=== PATIENT | male | born 1955 | race Caucasian/White ===

== ENCOUNTER 2020-01-17 07:00 | Outpatient (RCR) | payer OTHER, SELFPAY ==
--- NOTE | 2020-02-27 14:44 | MHC.PT.DC ---
[facility] [place] Office [place] Office [place] Office [address] Ashly Flowers 140 [facility] [phone] F: [phone] F: [phone] F: [phone] F: [phone] Physical Therapy Discharge Report Diagnosis: Bilateral Leg Pain Date of Surgery: REFERRING DX: BILATERAL LEG PAIN Date of Evaluation: 12/27/19 Date of Discharge: 02/27/20 Treatments to Date: 6 Cancellations to Date: 0 No Shows to Date: 0 Discharge Status: Patient Elected to Stop Discharge Summary: Pt had to stop at this time for a stress test. Electronically signed by: Noah Mondragon PT Please sign and return to therapist. Thank you for your referral.
== END 2020-02-27 14:45 | disposition home or self-care (01) ==
LOC: HO.PTCHIC 07:00
PROVIDERS: PCP Internal Medicine; Visit Provider Internal Medicine
DX: M79.605 Pain in left leg (principal); M79.604 Pain in right leg
CPT/HCPCS: 97110; 97112

== ENCOUNTER 2020-01-24 11:02 | Outpatient (REF) | payer OTHER, SELFPAY ==
[2020-01-24 14:12] LABS: B Type Natriuretic Peptide 2392 pg/mL (<100)
[2020-01-24 14:15] LABS: Anion Gap 14 (12-20); Blood Urea Nitrogen 40 mg/dL (9-16); Calcium 8.2 mg/dL (8.4-10.2); Carbon Dioxide 24 mmol/L (22-29); Chloride 105 mmol/L (96-108); Estimated Glomerular Filt Rate 40; Glucose Random 104 mg/dL (60-115); Potassium 4.1 mmol/l (3.3-5.1); Sodium 139 mmol/L (135-145)
== END 2020-01-24 11:03 | disposition home or self-care (01) ==
LOC: HO.LAB 11:02
PROVIDERS: PCP Internal Medicine; Referring Provider Internal Medicine; Visit Provider Nurse Practitioner Family
DX: I25.10 Atherosclerotic heart disease of native coronary artery without angina pectoris (principal); I42.9 Cardiomyopathy, unspecified; R06.02 Shortness of breath; Z95.810 Presence of automatic (implantable) cardiac defibrillator; I48.0 Paroxysmal atrial fibrillation; G47.33 Obstructive sleep apnea (adult) (pediatric); I11.0 Hypertensive heart disease with heart failure; I50.20 Unspecified systolic (congestive) heart failure
CPT/HCPCS: 80048; 83880; 93005

== ENCOUNTER → 2020-02-09 08:23 | Outpatient (REF) | payer OTHER, SELFPAY ==
--- NOTE | 2020-02-09 | NM_ITS ---
Myocardial perfusion study Indication: Chest discomfort with shortness of breath with underlying cardiomyopathy to evaluate for myocardial ischemia Technique: The patient was brought in for a Lexiscan perfusion study on 02/09/2020. Patient performed low-level exercise and was injected 0.4 mg of Lexiscan intravenously. Within a minute of injection, 28 mCi of sestamibi was given intravenously. Images were obtained using the SPECT gamma camera interlaced with the gating device. Images were obtained in supine position. Resting perfusion study was performed on 02/10/2020. Patient was administered 28 mCi of sestamibi intravenously at rest. Images were then obtained in supine position. Images obtained with and without CT attenuation. Total DLP 128 MGY-CM. Images were processed with the software and compared side to side in short axis, horizontal long axis and vertical long axis views. Findings: The stress perfusion study showed non attenuated images show diffuse thinning and reduced uptake in all segments except for the septum. There is absent uptake in the apex and severely reduced uptake in the inferior wall of the LV myocardium. There is also mildly to moderately reduced uptake in the inferolateral wall of the LV myocardium. Attenuation corrected images show improved uptake in the inferior wall with persistent severely reduced uptake in the distal anterior and absent uptake apex of the LV myocardium with moderately reduced uptake in the inferolateral wall of the LV myocardium.. The gated study shows severely reduced LV systolic function with calculated LVEF of 14%. LV cavity is severely dilated in size. The gated study shows diffusely reduced wall thickening and contraction of all segments. Resting study shows attenuated corrected images mildly improved uptake in the apex as well as improved uptake in the inferolateral wall of the LV myocardium.. Gating at rest reveals diffuse wall hypokinesis with ejection fraction at 60%. The findings are consistent with there is large area of apical absent uptake with some reversal with rest perfusion studies suggestive of either mixed infarction and ischemia versus severe ischemia of the apex as well as the mild ischemia inferolateral wall.. NM/NM herminia perf SPECT rest & str Impression: 1. Myocardial perfusion imaging study shows large apical infarct with ischemia as well as ischemia of the inferolateral wall 2. Gated LVEF is 14% 3. Transient ischemic dilatation not present but LV cavity is severely dilated EKG is nondiagnostic for ischemia
--- NOTE | 2020-02-09 08:31 | CA_ITS ---
Transthoracic Echocardiogram Patient (Last, First, Middle): Oh Fermin F Gender: Male Date of : 1955 Age: 64 Procedure Date: 02/09/2020 Procedure Type: Transthoracic Echocardiogram Location: OP Height: 170.18 cm Weight: 108.86 kg BSA: 2.18 m2 Heart Rate: bpm BP: 120 / 82 mmHg Roadway Designer: CJ Escobar MD: Ifrah Magallanes NP-Ivory Motor Driver: Jose Dumont MD Symptoms: I25.10 - Atherosclerotic heart disease of [place] coronary artery without angina pectoris Study Quality: Fair ECG Rhythm: AV paced rhythm Conclusions: - 1. Severely dilated left ventricle with severe LV systolic dysfunction with LVEF of 10-15% with restrictive filling pattern 2. Severely dilated left atrium 3. Piqz-hd-[id number] mitral regurgitation 4. Normal RV systolic pressure 5. No pericardial effusion Findings Procedure Information Contrast agent, definity, is being given per protocol without apparent complications. Left Ventricle Severely increased left ventricular cavity size. There is mildly increased left ventricular wall thickness. The left ventricular systolic function is severely decreased. The visually estimated ejection fraction is between 10 15%. Spectral Doppler is indicative of a restrictive filling pattern. E/E prime ratio is >15, consistent with elevated filling pressures. Right Ventricle Normal right ventricular cavity size. There is normal right ventricular systolic function. There is an ICD wire seen in the right ventricle. Atria The left atrium is severely dilated. Interatrial shunt cannot be excluded. The right atrium is mildly dilated. A pacemaker wire is identified in the right atrium. Aortic Valve The aortic valve structure and function is likely normal. There is no aortic valve stenosis. There is mild aortic valve regurgitation. Mitral Valve There is moderate anterior and posterior mitral leaflet thickening. The anterior mitral leaflet has restricted mobility and the posterior mitral leaflet has restricted mobility. There is mild to moderate mitral valve regurgitation. There is no mitral valve stenosis. Pulmonic Valve The pulmonic valve is likely normal. There is trace pulmonic valve regurgitation. Tricuspid Valve Normal tricuspid valve structure. There is mild tricuspid valve regurgitation. The right ventricular systolic pressure is normal. Normal right atrial pressure. There is no evidence of pulmonary hypertension. Great Vessels All visible segments of the aorta are normal in size. Venous The inferior vena cava is normal in size and collapses greater than 50% with inspiration. Pericardium/Pleural There is no evidence of pericardial effusion. Prior Study Comparison No significant change compared to prior study dated: 11/30/2018. Measurements 2D Linear Measurements RVIDd: 3.66 RVIDd Index: 1.68 IVSd: 1.30 0.6-0.9/0.6-1.0 cm LVIDd: 7.27 3.9-5.3/4.2-5.9 cm LVIDd Index: 3.33 2.4-3.2/2.2-3.1 cm/m2 LVIDs: 5.91 2.0-3.6 cm LVPWd: 1.41 0.7-1.1 cm Ao Root: 2.80 2.1-3.5 cm LA Diam: 7.20 2.7-3.8/3.0-4.0 cm LAIDs Index: 3.30 1.5-2.3 cm/m2 LV Mass: 634.16 67-162/88-224 g LV Mass Index: 290.90 43-95/49-115 g/m2 LVOT Diam: 2.50 3.0+(-)1.3 cm 2D Systolic Function EF 4C: 23.50 >55% EF 2C: 33.50 >55% Mitral Valve MR Vol - PW Dopp: 32.40 MR VTI: 1.62 MR ERO: 20.00 MR Alias Ramin: 0.30 MR RAD: 0.70 Aortic Valve AoV Pk Ramin: 1.33 AoV Mn Ramin: 0.95 AoV VTI: 0.23 AoV Pk Grad: 7.00 Aov Mn Grad: 4.00 LIVIA Cont.VTI: 1.59 LVOT LVOT Pk Ramin: 0.48 LVOT Mn Ramin: 0.31 LVOT VTI: 0.07 LVOT Pk Grad: 1.00 LVOT Mn Grad: 0.00 LVOT Diam: 2.50 LVOT Area: 4.91 Tricuspid Valve TR Pk Ramin: 2.76 TR Pk Grad: 30.00 RA Press: 8.00 RVSP: 38.00 Great Vessels Aorta Ao Root-2D: 2.80 2.0-3.7 cm Ao Asc: 3.20 2.1-3.4 cm Ao Arch: 2.60 Updated in Other Vendor System with Status of Final Jose Dumont MD electronically signed on 02/10/2020 3:02:17 PM with status of Final
--- NOTE | 2020-02-09 08:31 | CA_ITS ---
Acquisition Time: 2020-02-09 09:35:55 Total Exercise Time: 00:02:00 Test Indications: Dyspnea Medications: AMIODORONE PRADAXA FUROSEMIDE METOPROLOL TRAMADOL COLCHICINE ALPRAZOLAM ALLOPURINOL Protocol: LEXISCAN Max HR: 065 BPM 41% of Pred: 157 BPM Max BP: 126/084 mmHG Max Work Load: 1.0 METS Pharmacological stress test with Lexiscan injection, while sitting and not kicking, without anginal symptom, with isolated PVC, with normotensive response to injection, with nondiagnostic EKG for ischemia. Nuclear images pending. Test reviewed with Dr Dumont. Referred By: Ifrah Magallanes Overread By: IFRAH MAGALLANES
== END ==
LOC: HO.CARD 08:23
PROVIDERS: PCP Internal Medicine; Visit Provider Nurse Practitioner Family
DX: I25.10 Atherosclerotic heart disease of native coronary artery without angina pectoris (principal); R06.02 Shortness of breath; I42.9 Cardiomyopathy, unspecified
CPT/HCPCS: 78452; 93017; 93306; A9500; J0280; J2785; Q9957

== ENCOUNTER 2020-02-15 10:01 | Outpatient (REF) | payer OTHER, SELFPAY ==
[2020-02-15 13:26] LABS: Anion Gap 16 (12-20); Blood Urea Nitrogen 27 mg/dL (9-16); Calcium 8.7 mg/dL (8.4-10.2); Carbon Dioxide 26 mmol/L (22-29); Chloride 104 mmol/L (96-108); Estimated Glomerular Filt Rate 43; Glucose Random 78 mg/dL (60-115); Potassium 4.5 mmol/l (3.3-5.1); Sodium 141 mmol/L (135-145)
[2020-02-15 13:33] LABS: Hematocrit 54.3 % (42-52); Hemoglobin 17.4 g/dl (14.0-18.0); INTERNATIONAL NORM RATIO 1.3 (0.9-1.1); Mean Corpuscular Hemoglobin 29.5 pg (27.0-33.0); Mean Corpuscular Volume 92.2 fL (80-98); Mean Platelet Volume 12.9 fL (9.4-12.4); Platelet Count 200 X10*3/uL (160-400); Prothrombin Time 15.4 SEC (10.8-13.0); Red Blood Count 5.89 X10*6/uL (4.60-5.80); Red Cell Distribution Width 16.3 % (11.0-16.0); White Blood Count 6.8 X10*3/uL (4.8-10.8)
== END 2020-02-15 10:02 | disposition home or self-care (01) ==
LOC: HO.LAB 10:01
PROVIDERS: PCP Internal Medicine; Referring Provider Internal Medicine; Visit Provider Internal Medicine Cardiovascular Disease
DX: I25.10 Atherosclerotic heart disease of native coronary artery without angina pectoris (principal); I48.0 Paroxysmal atrial fibrillation; R07.89 Other chest pain; R94.39 Abnormal result of other cardiovascular function study; I42.9 Cardiomyopathy, unspecified; I50.20 Unspecified systolic (congestive) heart failure; Z95.810 Presence of automatic (implantable) cardiac defibrillator
CPT/HCPCS: 36415; 80048; 85027; 85610

== ENCOUNTER → 2020-03-07 10:23 | Outpatient (BNVA) | payer OTHER, SELFPAY | PROVIDERS: PCP Internal Medicine; Visit Provider Internal Medicine Cardiovascular Disease | DX: Z76.89 Persons encountering health services in other specified circumstances (principal) ==

== ENCOUNTER 2020-03-24 09:11 | Outpatient (REF) | payer OTHER, SELFPAY ==
[2020-03-24 10:03] LABS: B Type Natriuretic Peptide 815 pg/mL (<100)
[2020-03-24 10:08] LABS: Anion Gap 13 (12-20); Blood Urea Nitrogen 25 mg/dL (9-16); Calcium 8.8 mg/dL (8.4-10.2); Carbon Dioxide 30 mmol/L (22-29); Chloride 106 mmol/L (96-108); Estimated Glomerular Filt Rate 43; Glucose Random 94 mg/dL (60-115); Potassium 4.1 mmol/l (3.3-5.1); Sodium 145 mmol/L (135-145)
== END 2020-03-24 09:12 | disposition home or self-care (01) ==
LOC: HO.LAB 09:11
PROVIDERS: PCP Internal Medicine; Visit Provider Internal Medicine Cardiovascular Disease
DX: I50.20 Unspecified systolic (congestive) heart failure (principal); I42.9 Cardiomyopathy, unspecified
CPT/HCPCS: 80048; 83880

== ENCOUNTER → 2020-03-27 10:59 | Outpatient (BNVA) | payer OTHER, SELFPAY | PROVIDERS: PCP Internal Medicine; Visit Provider Internal Medicine Cardiovascular Disease | DX: I50.20 Unspecified systolic (congestive) heart failure (principal); I48.0 Paroxysmal atrial fibrillation; Z79.01 Long term (current) use of anticoagulants; Z79.899 Other long term (current) drug therapy; Z45.02 Encounter for adjustment and management of automatic implantable cardiac defibrillator | CPT/HCPCS: 93005 ==

== ENCOUNTER 2020-05-09 06:28 | Outpatient (REF) | payer OTHER, SELFPAY ==
[2020-05-09 07:42] LABS: Anion Gap 16 (12-20); Blood Urea Nitrogen 31 mg/dL (9-16); Calcium 8.7 mg/dL (8.4-10.2); Carbon Dioxide 29 mmol/L (22-29); Chloride 102 mmol/L (96-108); Estimated Glomerular Filt Rate 34; Glucose Random 108 mg/dL (60-115); Potassium 4.5 mmol/L (3.3-5.1); Sodium 142 mmol/L (135-145)
[2020-05-09 07:52] LABS: B Type Natriuretic Peptide 2249 pg/mL (<100)
== END 2020-05-09 06:29 | disposition home or self-care (01) ==
LOC: HO.LAB 06:28
PROVIDERS: PCP Internal Medicine; Visit Provider Internal Medicine Cardiovascular Disease
DX: I50.20 Unspecified systolic (congestive) heart failure (principal)
CPT/HCPCS: 36415; 80048; 83880

== ENCOUNTER 2020-05-10 12:25 | Outpatient (REF) | payer OTHER, SELFPAY ==
--- NOTE | ~2020-05-10 | XR_ITS ---
EXAMINATION: XR CHEST CLINICAL INFORMATION: I50.20 - Unspecified systolic (congestive) heart failure COMPARISON: Chest radiographs 09/07/2018, 09/03/2018 TECHNIQUE: 2 views of the chest were obtained. FINDINGS: There is multilead AICD and generalized cardiomegaly similar to prior studies. The vascularity is normal. The lungs are clear. There is no airspace consolidation, vascular congestion, or effusion. The hilar and mediastinal contours and bony structures are stable. XR/XR chest 2V IMPRESSION: No acute intrathoracic disease when compared with prior studies.
== END 2020-05-10 12:26 | disposition home or self-care (01) ==
LOC: HO.XRAY 12:25
PROVIDERS: PCP Internal Medicine; Visit Provider Internal Medicine Cardiovascular Disease
DX: I50.20 Unspecified systolic (congestive) heart failure (principal); I48.0 Paroxysmal atrial fibrillation; I42.9 Cardiomyopathy, unspecified; I25.10 Atherosclerotic heart disease of native coronary artery without angina pectoris; I25.118 Atherosclerotic heart disease of native coronary artery with other forms of angina pectoris; G47.33 Obstructive sleep apnea (adult) (pediatric); Z45.02 Encounter for adjustment and management of automatic implantable cardiac defibrillator; Z79.899 Other long term (current) drug therapy
CPT/HCPCS: 71046; 93005

== ENCOUNTER 2020-05-16 06:21 | Outpatient (REF) | payer OTHER, SELFPAY ==
[2020-05-16 07:31] LABS: B Type Natriuretic Peptide 818 pg/mL (<100)
[2020-05-16 08:18] LABS: Anion Gap 14 (12-20); Blood Urea Nitrogen 31 mg/dL (9-16); Calcium 8.7 mg/dL (8.4-10.2); Carbon Dioxide 31 mmol/L (22-29); Chloride 100 mmol/L (96-108); Estimated Glomerular Filt Rate 33; Glucose Random 90 mg/dL (60-115); Potassium 3.5 mmol/L (3.3-5.1); Sodium 141 mmol/L (135-145)
== END 2020-05-16 06:22 | disposition home or self-care (01) ==
LOC: HO.LAB 06:21
PROVIDERS: Visit Provider Internal Medicine Cardiovascular Disease
DX: I50.20 Unspecified systolic (congestive) heart failure (principal)
CPT/HCPCS: 36415; 80048; 83880

== ENCOUNTER → 2020-05-28 14:39 | Outpatient (BNVA) | payer OTHER, SELFPAY | PROVIDERS: PCP Internal Medicine; Visit Provider Internal Medicine Cardiovascular Disease ==

== ENCOUNTER 2020-07-19 06:05 | Outpatient (REF) | payer OTHER, SELFPAY ==
[2020-07-19 07:20] LABS: MANUAL DIFF FLAG NO
[2020-07-19 07:30] LABS: Basophils Percent Auto 0.3 % (0-2); Eosinophils Absolute Auto 0.4 X10*3/uL (0.0-0.4); Eosinophils Percent Auto 4.4 % (0-4); Hematocrit 54.6 % (42-52); Hemoglobin 17.4 g/dl (14.0-18.0); Imm Gran Abs Auto 0.02 X10*3/uL (0.00-0.03); Imm Gran Pct Auto 0.2 % (0.0-0.4); Lymphocytes Absolute Auto 2.1 X10*3/uL (1.2-4.9); Lymphocytes Percent Auto 24.2 % (20-40); Mean Corpuscular HGB Conc 31.9 g/dl (31.0-36.0); Mean Corpuscular Hemoglobin 29.1 pg (27.0-33.0); Mean Corpuscular Volume 91.5 fL (80-98); Monocytes Absolute Auto 0.8 X10*3/uL (0.1-1.2); Monocytes Percent Auto 9.5 % (2-11); Neutrophils Absolute Auto 5.3 X10*3/uL (2.0-8.3); Neutrophils Percent Auto 61.4 % (45-73); Platelet Count 197 X10*3/uL (160-400); Red Blood Count 5.97 X10*6/uL (4.60-5.80); Red Cell Distribution Width 15.4 % (11.0-16.0); White Blood Count 8.7 X10*3/uL (4.8-10.8)
[2020-07-19 07:41] LABS: Alanine Aminotransferase 17 U/L (0-40); Albumin Level 4.3 g/dL (3.5-5.0); Alkaline Phosphatase 111 U/L (39-117); Anion Gap 15 (12-20); Aspartate Amino Transferase 25 U/L (5-37); Bilirubin Total 0.9 mg/dL (0.0-1.0); Blood Urea Nitrogen 46 mg/dL (9-16); Calcium 9.4 mg/dL (8.4-10.2); Carbon Dioxide 34 mmol/L (22-29); Chloride 97 mmol/L (96-108); Cholesterol 122 mg/dL; Estimated Glomerular Filt Rate 30; Glucose Random 92 mg/dL (60-115); HDL Cholesterol 36 mg/dL; LDL Cholesterol Calculated 65 mg/dl; Phosphorus 5.2 mg/dL (2.7-4.5); Potassium 4.1 mmol/L (3.3-5.1); Sodium 142 mmol/L (135-145); Total Protein 7.3 g/dL (6.5-8.0); Triglycerides 106 mg/dL
[2020-07-19 07:53] LABS: B Type Natriuretic Peptide 457 pg/mL (<100)
[2020-07-19 08:05] LABS: Free T4 (Free Thyroxine) 1.16 ng/dL (0.71-1.85); Prostate Specific Antigen Scr 2.26 ng/mL (<0.05-4.0); Thyroid Stimulating Hormone 2.91 uIU/mL (0.32-4.0)
[2020-07-19 09:38] LABS: Estimated Average Glucose 100 mg/dL; Hemoglobin A1c % 5.1 %
== END 2020-07-19 06:06 | disposition home or self-care (01) ==
LOC: HO.LAB 06:05
PROVIDERS: Visit Provider Internal Medicine
DX: E78.00 Pure hypercholesterolemia, unspecified (principal); I50.20 Unspecified systolic (congestive) heart failure
CPT/HCPCS: 36415; 80053; 80061; 83036; 83735; 83880; 84100; 84153; 84439; 84443; 85025

== ENCOUNTER → 2020-07-31 12:30 | Outpatient (BNVA) | payer OTHER, SELFPAY | PROVIDERS: PCP Internal Medicine; Referring Provider Internal Medicine; Visit Provider Internal Medicine Cardiovascular Disease ==

== ENCOUNTER → 2020-10-11 09:26 | Outpatient (BNVA) | payer OTHER, SELFPAY | PROVIDERS: PCP Internal Medicine; Visit Provider Internal Medicine Cardiovascular Disease | DX: Z45.02 Encounter for adjustment and management of automatic implantable cardiac defibrillator (principal); I50.20 Unspecified systolic (congestive) heart failure; I48.0 Paroxysmal atrial fibrillation; I25.118 Atherosclerotic heart disease of native coronary artery with other forms of angina pectoris | CPT/HCPCS: 93005 ==

== ENCOUNTER 2020-10-20 07:14 | Outpatient (REF) | payer OTHER, SELFPAY ==
[2020-10-20 08:10] LABS: Anion Gap 12 (12-20); Blood Urea Nitrogen 18 mg/dL (9-16); Calcium 9.1 mg/dL (8.4-10.2); Carbon Dioxide 32 mmol/L (22-29); Chloride 102 mmol/L (96-108); Estimated Glomerular Filt Rate 41; Glucose Random 91 mg/dL (60-115); Potassium 3.8 mmol/L (3.3-5.1); Sodium 142 mmol/L (135-145)
[2020-10-20 08:17] LABS: B Type Natriuretic Peptide 584 pg/mL (<100)
== END 2020-10-20 07:15 | disposition home or self-care (01) ==
LOC: HO.LAB 07:14
PROVIDERS: PCP Internal Medicine; Visit Provider Internal Medicine Cardiovascular Disease
DX: I50.20 Unspecified systolic (congestive) heart failure (principal)
CPT/HCPCS: 36415; 80048; 83880

== ENCOUNTER 2021-01-15 10:35 | Outpatient (REF) | payer OTHER, SELFPAY ==
[2021-01-15 13:01] LABS: Anion Gap 13 (12-20); Blood Urea Nitrogen 33 mg/dL (9-16); Calcium 9.2 mg/dL (8.4-10.2); Carbon Dioxide 29 mmol/L (22-29); Chloride 105 mmol/L (96-108); Estimated Glomerular Filt Rate 47; Glucose Random 84 mg/dL (60-115); Potassium 3.9 mmol/L (3.3-5.1); Sodium 143 mmol/L (135-145)
[2021-01-15 13:06] LABS: B Type Natriuretic Peptide 719 pg/mL (<100)
== END 2021-01-15 10:36 | disposition home or self-care (01) ==
LOC: HO.LAB 10:35
PROVIDERS: PCP Internal Medicine; Referring Provider Internal Medicine; Visit Provider Internal Medicine Cardiovascular Disease
DX: I50.20 Unspecified systolic (congestive) heart failure (principal); I48.0 Paroxysmal atrial fibrillation; I25.118 Atherosclerotic heart disease of native coronary artery with other forms of angina pectoris; Z95.810 Presence of automatic (implantable) cardiac defibrillator
CPT/HCPCS: 36415; 80048; 83880; 93005

== ENCOUNTER 2021-01-31 06:18 | Outpatient (REF) | payer OTHER, SELFPAY ==
[2021-01-31 06:26] LABS: MANUAL DIFF FLAG NO
[2021-01-31 07:20] LABS: Basophils Percent Auto 0.4 % (0-2); Eosinophils Absolute Auto 0.3 X10*3/uL (0.0-0.4); Eosinophils Percent Auto 3.9 % (0-4); Hematocrit 50.1 % (42.0-52.0); Imm Gran Abs Auto 0.03 X10*3/uL (0.00-0.03); Imm Gran Pct Auto 0.4 % (0.0-0.4); Lymphocytes Absolute Auto 1.7 X10*3/uL (1.2-4.9); Lymphocytes Percent Auto 22.1 % (20-40); Mean Corpuscular HGB Conc 31.9 g/dl (31.0-36.0); Mean Corpuscular Hemoglobin 28.5 pg (27.0-33.0); Mean Corpuscular Volume 89.1 fL (80.0-98.0); Mean Platelet Volume 11.5 fL (9.4-12.4); Monocytes Absolute Auto 0.7 X10*3/uL (0.1-1.2); Monocytes Percent Auto 8.8 % (2-11); Neutrophils Absolute Auto 5.08 x10*3/uL (2.0-8.3); Neutrophils Percent Auto 64.4 % (45-73); Platelet Count 201 X10*3/uL (160-400); Red Blood Count 5.62 X10*6/uL (4.60-5.80); Red Cell Distribution Width 15.5 % (11.0-16.0); White Blood Count 7.9 X10*3/uL (4.8-10.8)
[2021-01-31 07:48] LABS: Alanine Aminotransferase 13 U/L (0-40); Albumin Level 4.2 g/dL (3.5-5.0); Alkaline Phosphatase 101 U/L (39-117); Anion Gap 15 (12-20); Aspartate Amino Transferase 24 U/L (5-37); Bilirubin Total 0.4 mg/dL (0.0-1.0); Blood Urea Nitrogen 49 mg/dL (9-16); Carbon Dioxide 27 mmol/L (22-29); Chloride 105 mmol/L (96-108); Cholesterol 120 mg/dL; Estimated Glomerular Filt Rate 31; Glucose Random 97 mg/dL (60-115); HDL Cholesterol 33 mg/dL; LDL Cholesterol Calculated 56 mg/dl; Potassium 4.8 mmol/L (3.3-5.1); Sodium 142 mmol/L (135-145); Total Protein 7.4 g/dL (6.5-8.0); Triglycerides 157 mg/dL; Uric Acid 6.1 mg/dL (3.4-7.0)
[2021-01-31 07:56] LABS: B Type Natriuretic Peptide 254 pg/mL (<100)
[2021-01-31 08:11] LABS: Free T4 (Free Thyroxine) 1.08 ng/dL (0.71-1.85); Prostate Specific Antigen Scr 2.96 ng/mL (<0.05-4.0); Thyroid Stimulating Hormone 2.79 uIU/mL (0.32-4.0)
[2021-01-31 08:41] LABS: Folate 16.1 ng/mL (> or = 4.0); Vitamin B12 457 pg/mL (200-900)
== END 2021-01-31 06:19 | disposition home or self-care (01) ==
LOC: HO.LAB 06:18
PROVIDERS: PCP Internal Medicine; Visit Provider Internal Medicine
DX: Z12.5 Encounter for screening for malignant neoplasm of prostate (principal); I25.118 Atherosclerotic heart disease of native coronary artery with other forms of angina pectoris; I48.0 Paroxysmal atrial fibrillation; E78.00 Pure hypercholesterolemia, unspecified
CPT/HCPCS: 36415; 80053; 80061; 82607; 82746; 83880; 84153; 84439; 84443; 84550; 85025

== ENCOUNTER → 2021-02-25 09:17 | Outpatient (REF) | payer OTHER, SELFPAY ==
--- NOTE | 2021-02-25 09:48 | CA_ITS ---
Transthoracic Echocardiogram Patient (Last, First, Middle): Oh Fermin F Gender: Male Date of : 1955 Age: 65 Procedure Date: 02/25/2021 Procedure Type: Transthoracic Echocardiogram Location: OP Height: 170.18 cm Weight: 105.24 kg BSA: 2.15 m2 Heart Rate: bpm BP: 122 / 78 mmHg Sports Information Director: Referring MD: Jose Dumont MD Symptoms: I50.20 - Unspecified systolic (congestive) heart failure Study Quality: Fair ECG Rhythm: Sinus with extra beats Conclusions: - The left ventricular systolic function is severely decreased. The visually estimated ejection fraction is between 10-15%. - No obvious valvular pathology seen on this study. Findings Procedure Information Contrast agent, definity, is being given per protocol without apparent complications. Left Ventricle Mildly increased left ventricular cavity size. There is moderately increased left ventricular wall thickness. The left ventricular systolic function is severely decreased. The visually estimated ejection fraction is between 10 15%. There is severe global hypokinesis. E/E prime ratio is between 8 and 15 consistent with indeterminate filling pressures. Evidence suggests grade I (mild) diastolic dysfunction. Right Ventricle Normal right ventricular cavity size and systolic function. There is an ICD wire seen in the right ventricle. TAPSE 2.9cm. Atria The left atrium is mildly dilated. The right atrium is normal in size. Aortic Valve The aortic valve was not well visualized. The aortic valve structure and function is likely normal. There is no aortic valve stenosis. The mean gradient is 4 mmHg. There is trace (trivial) aortic valve regurgitation. Mitral Valve The mitral valve appears normal. There is trace mitral valve regurgitation. There is no mitral valve stenosis. Pulmonic Valve The pulmonic valve was not well visualized. Tricuspid Valve There is mild tricuspid valve regurgitation. The pulmonary artery systolic pressure is normal. Great Vessels The aortic annulus, sinuses of valsalva, and asc aorta are normal in size. Venous The inferior vena cava was not well visualized. The inferior vena cava is normal in size. Pericardium/Pleural There is no evidence of pericardial effusion. Prior Study Comparison No significant change compared to prior study dated: 02/09/2020. Recommendations, Care & Conclusions No obvious valvular pathology seen on this study. Measurements 2D Linear Measurements IVSd: 1.39 0.6-0.9/0.6-1.0 cm LVIDd: 6.54 3.9-5.3/4.2-5.9 cm LVIDd Index: 3.04 2.4-3.2/2.2-3.1 cm/m2 LVIDs: 5.50 2.0-3.6 cm LVPWd: 1.38 0.7-1.1 cm Ao Root: 3.10 2.1-3.5 cm LA Diam: 5.80 2.7-3.8/3.0-4.0 cm LAIDs Index: 2.70 1.5-2.3 cm/m2 LV Mass: 548.32 67-162/88-224 g LV Mass Index: 255.03 43-95/49-115 g/m2 LVOT Diam: 2.50 3.0+(-)1.3 cm 2D Systolic Function EF 4C: 19.30 >55% EF 2C: 26.60 >55% EF BiP: 24.60 >55% Mitral Valve MV Pk E: 0.41 MV PK A: 0.47 MV Decel Time: 245.00 E/A: 0.90 E'Lateral: 2.61 E'Medial: 3.26 E/E' Med: 12.60 E/E' Lat: 15.70 PHT: 72.00 MVA PHT: 3.06 Decel [place]: 1.68 Aortic Valve AoV Pk Ramin: 1.35 AoV Mn Ramin: 0.87 AoV VTI: 0.26 AoV Pk Grad: 7.00 Aov Mn Grad: 4.00 LIVIA Cont.VTI: 2.12 LVOT LVOT Pk Ramin: 0.58 LVOT Mn Ramin: 0.38 LVOT VTI: 0.11 LVOT Pk Grad: 1.00 LVOT Mn Grad: 1.00 LVOT Diam: 2.50 LVOT Area: 4.91 Diastolic Function MV Pk E: 0.41 MV Pk A: 0.47 E/A: 0.90 E'Medial: 3.26 E/E' Med: 12.60 E' Laterial: 2.61 E/E' Lat: 15.70 Right Ventricle TAPSE (mm): 29.00 Tricuspid Valve TR Pk Ramin: 2.25 TR Pk Grad: 20.00 Great Vessels Aorta Ao Root-2D: 3.10 2.0-3.7 cm Ao Asc: 3.40 2.1-3.4 cm Pulmonary Valve PV Pk Ramin: 0.87 Peak PV Grad: 3.00 Updated in Other Vendor System with Status of Final Enio Go MD electronically signed on 02/26/2021 12:10:26 PM with status of Final
== END ==
LOC: HO.CARD 09:17
PROVIDERS: Visit Provider Internal Medicine Cardiovascular Disease
DX: I50.20 Unspecified systolic (congestive) heart failure (principal)
CPT/HCPCS: 93306; Q9957

== ENCOUNTER 2021-03-26 07:00 | Outpatient (RCR) | payer OTHER, SELFPAY ==
--- NOTE | 2021-02-01 07:54 | MHC.PT.EP ---
[facility] [place] Office [place] Office [place] Office [address] Ashly Flowers [address] [phone] F: [phone] F: [phone] F: [phone] F: [phone] Physical Therapy Plan of Care Date of Evaluation: Date of Surgery: n/a Diagnosis: Gait instability Assessment: Patient is a 65 year old R handed male who presents with s/s consistent with gait instability. 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 Current impairments include pain, balance, ROM, flexibility, strength, safety, independence, activity tolerance and functional mobility. Functional limitations include decreased ability to walk, stand, transfer, negotiate stairs, and perform weight bearing activities.. Patient is motivated with good rehab potential. Skilled PT will address impairments and functional limitations in order to achieve goals. Frequency and Duration: The patient will be seen 2x/week for 6 weeks Short Term Goals: I with HEP - 2 weeks SLB > 20 seconds - 3 weeks up and down 6 stair with 1 handheld assist and good eccentric control - 3 weeks Detention Goals: up and down 8 stair with 1 handheld assist and good eccentric control - 6 weeks LEFS 58/80 - 6 weeks LE strength 4/5 grossly - 6 weeks Full left knee flexion, 90/90 lacking < 20 - 6 weeks Treatment Plan: Modalities to reduce pain, spasms and effusion. Manual therapy to restore motion and function. Therapeutic exercise to improve strength and flexibility. Neuromuscular re-education for posture and balance. Therapeutic activities to return to functional activities of daily living. Electronically signed by: Noah Mondragon, PT Please sign and return to therapist. Thank you for your referral.
--- NOTE | 2021-07-17 07:36 | MHC.PT.DC ---
[facility] [place] Office [place] Office [place] Office [address] Ashly Flowers [address] [phone] F: [phone] F: [phone] F: [phone] F: [phone] Physical Therapy Discharge Report Diagnosis: Gait instability Date of Surgery: n/a Date of Evaluation: 02/01/21 Date of Discharge: 04/18/21 Treatments to Date: 11 Cancellations to Date: 0 No Shows to Date: 0 Discharge Status: Improved Function Independent with HEP Discharge Summary: At this time, pt elected to stop PT and continue exclusively with HEP after experiencing good progress on goals during his time in PT. 03/26/21: pt is progressing well overall with stairs, balance, function. still uses a cane at work as a precaution. gait is steadier and he is tolerating increased resistance. 03/19/21: pt has been progressing very well overall. improved stair mechanics. improved strength. 03/14/21: pt progressing very well. able to walk longer, less fatigue. improved performance on stairs. continue to progress as tolerated. 03/07/21: added TRX squats. follows cues well for mechanics. continue to progress as tolerated. 03/05/21: pt still progressing well noting stairs are easier at home. increased resistance on shuttle for double and single leg. no adverse reactions. 02/28/21: pt progressing well with skilled PT for balance and hip strength. no pain reported. we progressed resistance on stepper with no adverse reactions. 02/26/21: Responding very well with skilled PT to build strength, balance and stability. Functional improvements include stair negotiation into/out of cellar at home. 02/19/21: pt progressed with shuttle resistance, lunges and stepper time. no adverse reactions. requires continued cues to cut down UE assist with stairs. 02/14/21: pt challenged with above program but overall no adverse reactions. still relies on UE for step up/down activity control. With cues to reduce UE use, pt able to but to small extent. 02/07: Pt demonstrated good flat ground balance in // bars; NV trial rocker or airex to increase challenge; Demonstrated significant reluctance and compensated performance with descending stairs; See gait. Added bridge, sit <> stand with hip hinge and quad stretch to HEP. Patient is a 65 year old R handed male who presents with s/s consistent with gait instability. 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 Current impairments include pain, balance, ROM, flexibility, strength, safety, independence, activity tolerance and functional mobility. Functional limitations include decreased ability to walk, stand, transfer, negotiate stairs, and perform weight bearing activities.. Patient is motivated with good rehab potential. Skilled PT will address impairments and functional limitations in order to achieve goals. Electronically signed by: Noah Mondragon, PT Please sign and return to therapist. Thank you for your referral.
== END 2021-07-17 07:37 | disposition home or self-care (01) ==
LOC: HO.PTCHIC 07:00
PROVIDERS: PCP Internal Medicine; Visit Provider Internal Medicine
DX: R26.81 Unsteadiness on feet (principal)
CPT/HCPCS: 97110; 97112; 97116; 97163; 97530

== ENCOUNTER 2021-05-09 06:11 | Outpatient (REF) | payer OTHER, SELFPAY ==
[2021-05-09 06:32] LABS: MANUAL DIFF FLAG NO
[2021-05-09 07:32] LABS: Basophils Percent Auto 0.2 % (0-2); Eosinophils Absolute Auto 0.2 X10*3/uL (0.0-0.4); Eosinophils Percent Auto 3.4 % (0-4); Hematocrit 45.4 % (42.0-52.0); Hemoglobin 14.4 g/dl (14.0-18.0); Imm Gran Abs Auto 0.03 X10*3/uL (0.00-0.03); Imm Gran Pct Auto 0.5 % (0.0-0.4); Lymphocytes Absolute Auto 1.7 X10*3/uL (1.2-4.9); Mean Corpuscular HGB Conc 31.7 g/dl (31.0-36.0); Mean Corpuscular Hemoglobin 27.1 pg (27.0-33.0); Mean Corpuscular Volume 85.5 fL (80.0-98.0); Mean Platelet Volume 11.3 fL (9.4-12.4); Monocytes Absolute Auto 0.8 X10*3/uL (0.1-1.2); Monocytes Percent Auto 11.5 % (2-11); Neutrophils Absolute Auto 3.8 x10*3/uL (2.0-8.3); Neutrophils Percent Auto 58.4 % (45-73); Platelet Count 222 X10*3/uL (160-400); Red Blood Count 5.31 X10*6/uL (4.60-5.80); Red Cell Distribution Width 15.1 % (11.0-16.0); White Blood Count 6.5 X10*3/uL (4.8-10.8)
[2021-05-09 07:45] LABS: Appearance Urine CLEAR; Color Urine YELLOW; Glucose Urine UA NEG (NEG); Leukocyte Esterase Urine TRACE (NEG); Nitrite Urine NEG (NEG); Urine Blood NEG (NEG); Urine Ketones NEG (NEG); Urine Protein NEG (NEG-TRACE)
[2021-05-09 08:00] LABS: Alanine Aminotransferase 18 U/L (0-40); Albumin Level 4.2 g/dL (3.5-5.0); Alkaline Phosphatase 94 U/L (39-117); Anion Gap 14 (12-20); Aspartate Amino Transferase 30 U/L (5-37); Bilirubin Direct 0.3 mg/dL (0.0-0.5); Bilirubin Total 0.5 mg/dL (0.0-1.0); Blood Urea Nitrogen 67 mg/dL (9-16); Carbon Dioxide 28 mmol/L (22-29); Chloride 97 mmol/L (96-108); Estimated Glomerular Filt Rate 25; Glucose Random 93 mg/dL (60-115); Magnesium 2.9 mg/dL (1.6-2.6); Potassium 4.8 mmol/L (3.3-5.1); Sodium 134 mmol/L (135-145); Total Protein 7.7 g/dL (6.5-8.0)
[2021-05-09 08:03] LABS: B Type Natriuretic Peptide 121 pg/mL (<100)
[2021-05-09 08:16] LABS: Free T4 (Free Thyroxine) 1.01 ng/dL (0.71-1.85); Thyroid Stimulating Hormone 4.17 uIU/mL (0.32-4.0)
[2021-05-09 08:34] LABS: Bacteria Urine 2+ /LPF; Mucus Urine 1+ /LPF; RBC Urine 0 /HPF (0); Renal Epithelial Cells Urine TRACE /LPF; Squamous Epithelial Cell Urine TRACE /LPF
[2021-05-09 09:26] LABS: Folate 18.3 ng/mL (> or = 4.0); Vitamin B12 999 pg/mL (200-900)
[2021-05-09 09:42] LABS: Prostate Specific Antigen Scr 1.96 ng/mL (<0.05-4.0)
== END 2021-05-09 06:12 | disposition home or self-care (01) ==
LOC: HO.LAB 06:11
PROVIDERS: PCP Internal Medicine; Visit Provider Internal Medicine
DX: Z12.5 Encounter for screening for malignant neoplasm of prostate (principal); I50.20 Unspecified systolic (congestive) heart failure; E78.00 Pure hypercholesterolemia, unspecified; R79.89 Other specified abnormal findings of blood chemistry
CPT/HCPCS: 36415; 80053; 81001; 82248; 82607; 82746; 83735; 83880; 84153; 84439; 84443; 85025

== ENCOUNTER → 2021-06-11 14:17 | Outpatient (BNVA) | payer OTHER, SELFPAY | PROVIDERS: PCP Internal Medicine; Referring Provider Internal Medicine; Visit Provider Internal Medicine Cardiovascular Disease | DX: Z45.02 Encounter for adjustment and management of automatic implantable cardiac defibrillator (principal); I50.20 Unspecified systolic (congestive) heart failure; I25.118 Atherosclerotic heart disease of native coronary artery with other forms of angina pectoris; I48.0 Paroxysmal atrial fibrillation; N18.9 Chronic kidney disease, unspecified | CPT/HCPCS: 93005 ==

== ENCOUNTER 2021-06-26 05:58 | Outpatient (REF) | payer OTHER, SELFPAY ==
[2021-06-26 06:18] LABS: MANUAL DIFF FLAG NO
[2021-06-26 07:34] LABS: Basophils Percent Auto 0.3 % (0-2); Eosinophils Absolute Auto 0.2 X10*3/uL (0.0-0.4); Eosinophils Percent Auto 2.9 % (0-4); Hematocrit 45.5 % (42.0-52.0); Hemoglobin 14.4 g/dl (14.0-18.0); Imm Gran Abs Auto 0.03 X10*3/uL (0.00-0.03); Imm Gran Pct Auto 0.4 % (0.0-0.4); Lymphocytes Absolute Auto 1.6 X10*3/uL (1.2-4.9); Lymphocytes Percent Auto 23.3 % (20-40); Mean Corpuscular HGB Conc 31.6 g/dl (31.0-36.0); Mean Corpuscular Hemoglobin 26.9 pg (27.0-33.0); Mean Corpuscular Volume 84.9 fL (80.0-98.0); Monocytes Percent Auto 13.7 % (2-11); Neutrophils Absolute Auto 4.2 x10*3/uL (2.0-8.3); Neutrophils Percent Auto 59.4 % (45-73); Platelet Count 227 X10*3/uL (160-400); Red Blood Count 5.36 X10*6/uL (4.60-5.80); Red Cell Distribution Width 17.7 % (11.0-16.0)
[2021-06-26 07:44] LABS: INTERNATIONAL NORM RATIO 1.5 (0.9-1.1); Prothrombin Time 17.1 SEC (9.9-13.0)
[2021-06-26 08:02] LABS: B Type Natriuretic Peptide 90 pg/mL (<100)
[2021-06-26 08:03] LABS: Alanine Aminotransferase 16 U/L (0-40); Albumin Level 4.2 g/dL (3.5-5.0); Alkaline Phosphatase 86 U/L (39-117); Anion Gap 14 (12-20); Aspartate Amino Transferase 27 U/L (5-37); Bilirubin Total 0.4 mg/dL (0.0-1.0); Blood Urea Nitrogen 68 mg/dL (9-16); Calcium 9.2 mg/dL (8.4-10.2); Carbon Dioxide 25 mmol/L (22-29); Chloride 100 mmol/L (96-108); Estimated Glomerular Filt Rate 25; Glucose Random 99 mg/dL (60-115); Iron 39 mcg/dL (45-160); Percent Iron Saturation 10 % (15-50); Potassium 4.7 mmol/L (3.3-5.1); Sodium 134 mmol/L (135-145); Total Iron Binding Capacity 408 mcg/dL (228-428); Total Protein 7.6 g/dL (6.5-8.0); Unsaturated Iron Binding 369 ug/dL
[2021-06-26 08:26] LABS: Thyroid Stimulating Hormone 2.99 uIU/mL (0.32-4.0)
[2021-06-26 08:32] LABS: Folate 19.1 ng/mL (> or = 4.0); Vitamin B12 880 pg/mL (200-900)
[2021-06-26 09:17] LABS: Appearance Urine CLEAR; Color Urine STRAW; Glucose Urine UA 250 MG/DL (NEG); Leukocyte Esterase Urine 2+ (NEG); Nitrite Urine NEG (NEG); Urine Blood NEG (NEG); Urine Ketones NEG (NEG); Urine Protein NEG (NEG-TRACE)
[2021-06-26 09:25] LABS: Bacteria Urine 4+ /LPF; RBC Urine 0 /HPF (0)
== END 2021-06-26 05:59 | disposition home or self-care (01) ==
LOC: HO.LAB 05:58
PROVIDERS: PCP Internal Medicine; Visit Provider Internal Medicine Cardiovascular Disease
DX: N18.9 Chronic kidney disease, unspecified (principal); I50.20 Unspecified systolic (congestive) heart failure
CPT/HCPCS: 36415; 80053; 81001; 82607; 82746; 83540; 83880; 84439; 84443; 85025; 85610

== ENCOUNTER 2021-10-18 06:20 | Outpatient (REF) | payer OTHER, SELFPAY ==
[2021-10-18 08:21] LABS: Anion Gap 16 (12-20); Blood Urea Nitrogen 52 mg/dL (9-16); Calcium 9.3 mg/dL (8.4-10.2); Carbon Dioxide 25 mmol/L (22-29); Chloride 103 mmol/L (96-108); Cholesterol 104 mg/dL; Estimated Glomerular Filt Rate 29; Glucose Random 106 mg/dL (60-115); HDL Cholesterol 34 mg/dL; LDL Cholesterol Calculated 47 mg/dl; Potassium 5.4 mmol/L (3.3-5.1); Sodium 139 mmol/L (135-145); Triglycerides 117 mg/dL
[2021-10-18 08:26] LABS: B Type Natriuretic Peptide 84 pg/mL (<100)
== END 2021-10-18 06:21 | disposition home or self-care (01) ==
LOC: HO.LAB 06:20
PROVIDERS: Absent Provider Internal Medicine; PCP Internal Medicine; Visit Provider Internal Medicine Cardiovascular Disease
DX: I50.20 Unspecified systolic (congestive) heart failure (principal); I48.0 Paroxysmal atrial fibrillation; E78.00 Pure hypercholesterolemia, unspecified
CPT/HCPCS: 36415; 80048; 80061; 83880

== ENCOUNTER → 2021-10-21 08:24 | Outpatient (BNVA) | payer OTHER, SELFPAY | PROVIDERS: PCP Internal Medicine; Referring Provider Internal Medicine; Visit Provider Internal Medicine Cardiovascular Disease | DX: Z45.02 Encounter for adjustment and management of automatic implantable cardiac defibrillator (principal); I50.20 Unspecified systolic (congestive) heart failure; I48.0 Paroxysmal atrial fibrillation; I25.118 Atherosclerotic heart disease of native coronary artery with other forms of angina pectoris | CPT/HCPCS: 93005 ==

== ENCOUNTER 2021-10-28 06:05 | Outpatient (REF) | payer OTHER, SELFPAY ==
[2021-10-28 07:30] LABS: Hematocrit 45.9 % (42.0-52.0); Hemoglobin 14.4 g/dl (14.0-18.0); Mean Corpuscular HGB Conc 31.4 g/dl (31.0-36.0); Mean Corpuscular Hemoglobin 27.8 pg (27.0-33.0); Mean Corpuscular Volume 88.6 fL (80.0-98.0); Mean Platelet Volume 10.7 fL (9.4-12.4); Platelet Count 207 X10*3/uL (160-400); Red Blood Count 5.18 X10*6/uL (4.60-5.80); Red Cell Distribution Width 16.3 % (11.0-16.0); White Blood Count 7.7 X10*3/uL (4.8-10.8)
[2021-10-28 07:35] LABS: INTERNATIONAL NORM RATIO 1.3 (0.9-1.1); Prothrombin Time 15.5 SEC (10.0-13.1)
[2021-10-28 07:53] LABS: Anion Gap 15 (12-20); Blood Urea Nitrogen 29 mg/dL (9-16); Calcium 9.2 mg/dL (8.4-10.2); Carbon Dioxide 25 mmol/L (22-29); Chloride 105 mmol/L (96-108); Estimated Glomerular Filt Rate 38; Glucose Random 90 mg/dL (60-115); Potassium 5.4 mmol/L (3.3-5.1); Sodium 140 mmol/L (135-145)
== END 2021-10-28 06:06 | disposition home or self-care (01) ==
LOC: HO.LAB 06:05
PROVIDERS: PCP Internal Medicine; Visit Provider Internal Medicine Cardiovascular Disease
DX: I25.118 Atherosclerotic heart disease of native coronary artery with other forms of angina pectoris (principal); I48.0 Paroxysmal atrial fibrillation; I50.20 Unspecified systolic (congestive) heart failure; N18.9 Chronic kidney disease, unspecified
CPT/HCPCS: 36415; 80048; 85027; 85610

== ENCOUNTER 2022-02-28 12:13 | Outpatient (REF) | payer OTHER, SELFPAY ==
[2022-02-28 14:47] LABS: B Type Natriuretic Peptide 272 pg/mL (<100)
[2022-02-28 14:50] LABS: Blood Urea Nitrogen 72 mg/dL (9-16); Calcium 9.2 mg/dL (8.4-10.2); Estimated Glomerular Filt Rate 18; Glucose Random 101 mg/dL (60-115)
[2022-02-28 16:35] LABS: Anion Gap 16 (12-20); Carbon Dioxide 22 mmol/L (22-29); Chloride 96 mmol/L (96-108); Potassium 6.1 mmol/L (3.3-5.1); Sodium 128 mmol/L (135-145)
== END 2022-02-28 12:14 | disposition home or self-care (01) ==
LOC: HO.LAB 12:13
PROVIDERS: Anesthesiology Pain Medicine; PCP Internal Medicine; Visit Provider Internal Medicine Cardiovascular Disease
DX: I25.5 Ischemic cardiomyopathy (principal)
CPT/HCPCS: 36415; 80048; 83880

== ENCOUNTER 2022-04-03 05:38 | Outpatient (REF) | payer OTHER, SELFPAY ==
[2022-04-03 05:46] LABS: MANUAL DIFF FLAG NO
[2022-04-03 06:24] LABS: Basophils Percent Auto 0.3 % (0-2); Hematocrit 26.1 % (42.0-52.0); Imm Gran Abs Auto 0.06 X10*3/uL (0.00-0.03); Imm Gran Pct Auto 0.5 % (0.0-0.4); Lymphocytes Absolute Auto 1.1 X10*3/uL (1.2-4.9); Lymphocytes Percent Auto 9.7 % (20-40); Mean Corpuscular HGB Conc 30.7 g/dl (31.0-36.0); Mean Corpuscular Volume 78.4 fL (80.0-98.0); Mean Platelet Volume 10.5 fL (9.4-12.4); Monocytes Percent Auto 8.7 % (2-11); Neutrophils Absolute Auto 8.9 x10*3/uL (2.0-8.3); Neutrophils Percent Auto 80.8 % (45-73); Platelet Count 155 X10*3/uL (160-400); Red Blood Count 3.33 X10*6/uL (4.60-5.80); Red Cell Distribution Width 20.5 % (11.0-16.0)
[2022-04-03 07:26] LABS: Alanine Aminotransferase 8 U/L (0-40); Albumin Level 2.5 g/dL (3.5-5.0); Alkaline Phosphatase 99 U/L (39-117); Anion Gap 19 (12-20); Aspartate Amino Transferase 271 U/L (5-37); Bilirubin Total 0.5 mg/dL (0.0-1.0); Blood Urea Nitrogen 50 mg/dL (9-16); Calcium 7.9 mg/dL (8.4-10.2); Carbon Dioxide 23 mmol/L (22-29); Chloride 96 mmol/L (96-108); Estimated Glomerular Filt Rate 15; Glucose Random 93 mg/dL (60-115); Potassium 4.5 mmol/L (3.3-5.1); Sodium 133 mmol/L (135-145); Total Protein 6.2 g/dL (6.5-8.0)
== END 2022-04-03 05:39 | disposition home or self-care (01) ==
LOC: HO.MMNH2L 05:38
PROVIDERS: Visit Provider Family Medicine
DX: A41.9 Sepsis, unspecified organism (principal)
CPT/HCPCS: 36415; 80053; 85025

== ENCOUNTER 2022-04-07 05:58 | Outpatient (REF) | payer OTHER, SELFPAY ==
[2022-04-07 05:52] LABS: MANUAL DIFF FLAG NO
[2022-04-07 06:16] LABS: Basophils Percent Auto 0.4 % (0-2); Eosinophils Absolute Auto 0.1 X10*3/uL (0.0-0.4); Hematocrit 22.7 % (42.0-52.0); Imm Gran Abs Auto 0.03 X10*3/uL (0.00-0.03); Imm Gran Pct Auto 0.4 % (0.0-0.4); Lymphocytes Absolute Auto 1.2 X10*3/uL (1.2-4.9); Lymphocytes Percent Auto 15.3 % (20-40); Mean Corpuscular HGB Conc 30.4 g/dl (31.0-36.0); Mean Corpuscular Hemoglobin 23.8 pg (27.0-33.0); Mean Corpuscular Volume 78.3 fL (80.0-98.0); Mean Platelet Volume 10.1 fL (9.4-12.4); Monocytes Absolute Auto 0.6 X10*3/uL (0.1-1.2); Monocytes Percent Auto 7.4 % (2-11); Neutrophils Percent Auto 75.5 % (45-73); Platelet Count 263 X10*3/uL (160-400); Red Cell Distribution Width 19.8 % (11.0-16.0)
[2022-04-07 06:46] LABS: Hemoglobin 6.9 g/dl (14.0-18.0)
[2022-04-07 06:48] LABS: Anion Gap 18 (12-20); Blood Urea Nitrogen 67 mg/dL (9-16); Calcium 7.6 mg/dL (8.4-10.2); Carbon Dioxide 24 mmol/L (22-29); Chloride 94 mmol/L (96-108); Estimated Glomerular Filt Rate 10; Glucose Random 77 mg/dL (60-115); Potassium 5.2 mmol/L (3.3-5.1); Sodium 131 mmol/L (135-145)
== END 2022-04-07 05:59 | disposition home or self-care (01) ==
LOC: HO.MMNH2L 05:58
PROVIDERS: Visit Provider Family Medicine
DX: Z86.2 Personal history of diseases of the blood and blood-forming organs and certain disorders involving the immune mechanism (principal)
CPT/HCPCS: 36415; 80048; 85025

== ENCOUNTER 2022-04-14 06:38 | Outpatient (REF) | payer OTHER, SELFPAY ==
[2022-04-14 06:23] LABS: MANUAL DIFF FLAG NO
[2022-04-14 07:03] LABS: Basophils Percent Auto 0.4 % (0-2); Eosinophils Absolute Auto 0.2 X10*3/uL (0.0-0.4); Eosinophils Percent Auto 2.1 % (0-4); Hemoglobin 7.5 g/dl (14.0-18.0); Imm Gran Abs Auto 0.09 X10*3/uL (0.00-0.03); Imm Gran Pct Auto 1.2 % (0.0-0.4); Lymphocytes Absolute Auto 1.3 X10*3/uL (1.2-4.9); Lymphocytes Percent Auto 17.6 % (20-40); Mean Corpuscular Hemoglobin 24.1 pg (27.0-33.0); Mean Corpuscular Volume 80.4 fL (80.0-98.0); Monocytes Absolute Auto 0.8 X10*3/uL (0.1-1.2); Monocytes Percent Auto 11.3 % (2-11); Neutrophils Percent Auto 67.4 % (45-73); Platelet Count 336 X10*3/uL (160-400); Red Blood Count 3.11 X10*6/uL (4.60-5.80); Red Cell Distribution Width 20.1 % (11.0-16.0); White Blood Count 7.5 X10*3/uL (4.8-10.8)
[2022-04-14 07:56] LABS: Anion Gap 15 (12-20); Blood Urea Nitrogen 42 mg/dL (9-16); Calcium 8.1 mg/dL (8.4-10.2); Carbon Dioxide 27 mmol/L (22-29); Chloride 95 mmol/L (96-108); Estimated Glomerular Filt Rate 12; Glucose Random 79 mg/dL (60-115); Potassium 4.9 mmol/L (3.3-5.1); Sodium 132 mmol/L (135-145)
== END 2022-04-14 06:39 | disposition home or self-care (01) ==
LOC: HO.MMNH2L 06:38
PROVIDERS: Visit Provider Family Medicine
DX: A41.9 Sepsis, unspecified organism (principal)
CPT/HCPCS: 36415; 80048; 85025

== ENCOUNTER 2022-04-21 06:43 | Outpatient (REF) | payer OTHER, SELFPAY ==
[2022-04-21 06:27] LABS: MANUAL DIFF FLAG NO
[2022-04-21 07:15] LABS: Basophils Percent Auto 0.5 % (0-2); Eosinophils Absolute Auto 0.1 X10*3/uL (0.0-0.4); Eosinophils Percent Auto 0.8 % (0-4); Hematocrit 25.1 % (42.0-52.0); Hemoglobin 7.5 g/dl (14.0-18.0); Imm Gran Abs Auto 0.06 X10*3/uL (0.00-0.03); Imm Gran Pct Auto 0.8 % (0.0-0.4); Lymphocytes Absolute Auto 1.5 X10*3/uL (1.2-4.9); Lymphocytes Percent Auto 20.1 % (20-40); Mean Corpuscular HGB Conc 29.9 g/dl (31.0-36.0); Mean Corpuscular Hemoglobin 23.9 pg (27.0-33.0); Mean Corpuscular Volume 79.9 fL (80.0-98.0); Mean Platelet Volume 10.7 fL (9.4-12.4); Monocytes Absolute Auto 0.8 X10*3/uL (0.1-1.2); Monocytes Percent Auto 10.3 % (2-11); Neutrophils Absolute Auto 5.1 x10*3/uL (2.0-8.3); Neutrophils Percent Auto 67.5 % (45-73); Platelet Count 273 X10*3/uL (160-400); Red Blood Count 3.14 X10*6/uL (4.60-5.80); Red Cell Distribution Width 19.9 % (11.0-16.0); White Blood Count 7.5 X10*3/uL (4.8-10.8)
[2022-04-21 07:45] LABS: Anion Gap 21 (12-20); Blood Urea Nitrogen 46 mg/dL (9-16); Calcium 8.1 mg/dL (8.4-10.2); Carbon Dioxide 24 mmol/L (22-29); Chloride 96 mmol/L (96-108); Estimated Glomerular Filt Rate 11; Glucose Random 69 mg/dL (60-115); Sodium 136 mmol/L (135-145)
== END 2022-04-21 06:44 | disposition home or self-care (01) ==
LOC: HO.MMNH2L 06:43
PROVIDERS: Visit Provider Family Medicine
DX: A41.9 Sepsis, unspecified organism (principal)
CPT/HCPCS: 36415; 80048; 85025

== ENCOUNTER 2022-05-13 08:30 | Outpatient (REF) | payer OTHER, SELFPAY ==
[2022-05-13 09:45] LABS: MANUAL DIFF FLAG NO
[2022-05-13 10:25] LABS: Basophils Percent Auto 0.3 % (0-2); Eosinophils Absolute Auto 0.1 X10*3/uL (0.0-0.4); Eosinophils Percent Auto 0.9 % (0-4); Hemoglobin 8.6 g/dl (14.0-18.0); Imm Gran Abs Auto 0.07 X10*3/uL (0.00-0.03); Imm Gran Pct Auto 0.8 % (0.0-0.4); Immature Retic Fraction 38.2 % (2.3-13.4); Lymphocytes Percent Auto 11.2 % (20-40); Mean Corpuscular HGB Conc 28.7 g/dl (31.0-36.0); Mean Corpuscular Hemoglobin 22.8 pg (27.0-33.0); Mean Corpuscular Volume 79.6 fL (80.0-98.0); Mean Platelet Volume 9.9 fL (9.4-12.4); Monocytes Absolute Auto 0.7 X10*3/uL (0.1-1.2); Monocytes Percent Auto 7.7 % (2-11); Neutrophils Absolute Auto 7.2 x10*3/uL (2.0-8.3); Neutrophils Percent Auto 79.1 % (45-73); Platelet Count 259 X10*3/uL (160-400); Red Blood Count 3.77 X10*6/uL (4.60-5.80); Red Cell Distribution Width 21.4 % (11.0-16.0); Retic HGB Equivalent 26.4 pg (30.0-35.0); Reticulocyte Percent 3.1 % (0.5-1.8); Reticulocytes Absolute 0.117 X10*6/uL (0.026-0.095); White Blood Count 9.1 X10*3/uL (4.8-10.8)
[2022-05-13 10:42] LABS: Alanine Aminotransferase 8 U/L (0-40); Albumin Level 3.3 g/dL (3.5-5.0); Alkaline Phosphatase 90 U/L (39-117); Anion Gap 17 (12-20); Aspartate Amino Transferase 21 U/L (5-37); Bilirubin Total 0.6 mg/dL (0.0-1.0); Blood Urea Nitrogen 42 mg/dL (9-16); Calcium 8.6 mg/dL (8.4-10.2); Carbon Dioxide 25 mmol/L (22-29); Chloride 100 mmol/L (96-108); Cholesterol 86 mg/dL; Estimated Glomerular Filt Rate 24; Glucose Random 83 mg/dL (60-115); HDL Cholesterol 34 mg/dL; Iron 39 mcg/dL (45-160); LDL Cholesterol Calculated 41 mg/dl; Percent Iron Saturation 10 % (15-50); Potassium 4.8 mmol/L (3.3-5.1); Sodium 137 mmol/L (135-145); Total Iron Binding Capacity 378 mcg/dL (228-428); Total Protein 6.7 g/dL (6.5-8.0); Triglycerides 57 mg/dL; Unsaturated Iron Binding 339 ug/dL
[2022-05-13 11:03] LABS: Ferritin 125 ng/mL (20-250); Folate 7.9 ng/mL (> or = 4.0); Free T4 (Free Thyroxine) 1.13 ng/dL (0.71-1.85); Thyroid Stimulating Hormone 4.04 uIU/mL (0.32-4.0); Vitamin B12 443 pg/mL (200-900)
== END 2022-05-13 08:31 | disposition home or self-care (01) ==
LOC: HO.LAB 08:30
PROVIDERS: Absent Provider Internal Medicine; PCP Internal Medicine; Visit Provider Internal Medicine Cardiovascular Disease
DX: I50.20 Unspecified systolic (congestive) heart failure (principal); I48.0 Paroxysmal atrial fibrillation; I25.118 Atherosclerotic heart disease of native coronary artery with other forms of angina pectoris; R53.81 Other malaise; E78.00 Pure hypercholesterolemia, unspecified; D64.9 Anemia, unspecified; Z95.810 Presence of automatic (implantable) cardiac defibrillator
CPT/HCPCS: 36415; 80053; 80061; 82607; 82728; 82746; 83540; 84439; 84443; 85025; 85045; 93005

== ENCOUNTER 2022-05-14 07:39 | Outpatient (REF) | payer OTHER, SELFPAY ==
[2022-05-14 07:46] LABS: Appearance Urine Clear; Color Urine Dark Yellow; Glucose Urine UA Negative (Negative); Leukocyte Esterase Urine Small (1+) (Negative); Nitrite Urine Negative (Negative); PH 5.5 (5.0-9.0); UMIC TRIGGER UA YES; Urine Blood Large (3+) (Negative); Urine Ketones Trace mg/dL (Negative); Urine Protein 30 (1+) mg/dL (Neg-Trace)
[2022-05-14 07:57] LABS: Bacteria Urine None Seen (None Seen); Granular Casts Urine Present; Squamous Epithelial Cell Urine 0-2 /HPF (0-2)
== END 2022-05-14 07:40 | disposition home or self-care (01) ==
LOC: HO.LNP 07:39
PROVIDERS: Visit Provider Internal Medicine
DX: I50.20 Unspecified systolic (congestive) heart failure (principal)
CPT/HCPCS: 81001

== ENCOUNTER 2022-05-29 07:43 | Day surgery (SDC) | payer OTHER, SELFPAY ==
[2022-05-26 09:55] VITALS: BMI 35.2
--- NOTE | 2022-05-28 10:50 | HO.ANESPROP2 ---
Documented by User: Nay Bloom NP 05/28/22 10:53 HPI - Anesthesia Eval Consult details Narrative: 66yo M for Transesophageal Echocardiogram Eliquis for PAF Per cardiology OV s/p [facility] admit: recent multiple hospitalization related to septic shock related to E coli bacteremia.? Unknown source.? Patient had epidural phlegmon as well as psoas abscess.? He had an echocardiogram done during the hospitalization which did not show any significant vegetations although the study was limited and there is been concern for possible device related infection and JAY from the ID team.? Patient remains significantly anemic and is iron deficient has been receiving iron infusion and says that his shortness of breath is improved over the last few days.? He takes torsemide on daily basis and says still has a urine output.? Currently getting dialysis Thursday, Thursday and Thursday due to development of advanced renal dysfunction during his hospitalization with septic shock and bacteremia. ? PMFSH Active Problems Active Problems: All Active Problems (Updated 05/08/22 @ 15:53 by Raffaele Marcos MD) Pressure sore of ischial area (Acute) Anemia (Acute) COVID-19 virus infection (Acute) End stage renal disease (Acute) Sepsis (Acute) Osteomyelitis (Acute) Preop exam for internal medicine (Acute) Gait instability (Acute) CKD (chronic kidney disease) (Acute) Right hip pain (Acute) HFrEF (heart failure with reduced ejection fraction) (Acute) Biventricular ICD (implantable cardioverter-defibrillator) in place (Acute) PAF (paroxysmal atrial fibrillation) (Acute) Hypercholesterolemia (Acute) Obesity (BMI 30-39.9) (Acute) Hypertension (Acute) CAD (coronary artery disease) (Acute) Cardiomyopathy (Acute) JUDY (obstructive sleep apnea) (Acute) Anxiety (Acute) Past Medical History Medical History Anxiety Biventricular ICD (implantable cardioverter-defibrillator) in place CAD (coronary artery disease) Cardiomyopathy Failure of implantable cardioverter-defibrillator (ICD) lead Gout HFrEF (heart failure with reduced ejection fraction) Hypercholesterolemia Hypertension Obesity (BMI 30-39.9) JUDY (obstructive sleep apnea) PAF (paroxysmal atrial fibrillation) Port-A-Cath in place Septic arthritis of knee, left Ventricular fibrillation Vitamin D deficiency Family History Family History Father Hypertension CVD (cardiovascular disease) Mother No problems noted. Surgical History Surgical History History of arthroscopy of left knee History of cardiac defibrillator placement History of hip replacement History of tonsillectomy Hx of cardiac cath (~2013) Social History Social History Housing: House Alcohol intake: never Patient Tobacco Use Status: Never used Tobacco e-Cigarette/Vaping Use: Never Used Second Hand Smoke Exposure: No Use of substances other than those prescribed or required for medical reasons: No Are you DNR?: No Advance Directives: No Advance Directives Information Provided: Yes Recently lost weight without trying: No How much weight loss: 24-33 pounds Nutrition Risks: No Nutritional Risk service: No Current occupational status: employed Cognitive needs: No Hearing needs: No Vision needs: No Meds Allergies Allergy/AdvReac Type Severity Reaction Status Date / Time No Known Allergies Allergy Verified 05/08/22 15:11 [No Known Allergies*] Home Medications Medication Instructions Recorded Confirmed Last Taken Type allopurinol 300 mg tablet 100 mg PO DAILY 05/08/22 05/26/22 05/29/22 History amoxicillin 500 mg capsule 500 mg PO BID 05/08/22 05/29/22 05/29/22 History apixaban 5 mg tablet (Eliquis) 5 mg PO BID 05/13/22 05/26/22 05/29/22 History aspirin 81 mg tablet,delayed 81 mg PO DAILY 05/13/22 05/26/22 05/29/22 History release torsemide 20 mg tablet 20 mg PO DAILY 05/13/22 05/26/22 05/29/22 History Exam Exam Date and Time: May 28, 2022 1050 Height,Weight and Vital Signs: Height 5 ft 7 in Weight 102.058 kg Pertinent Lab Results Pertinent Lab Results: Laboratory Tests 05/13/22 05/13/22 09:44 09:44 WBC 9.1 Hgb 8.6 L Hct 30.0 L Plt Count 259 BUN 42 H Creatinine 2.68 H Narrative Narrative: Cardiac Device Check 04/2022 Details: Biventricular ICD in place, [place].? Programmed in DDDR at 60 beats per minute.? Biventricular pacing 98% of the time.? Atrial pacing 66% of time.? Atrial sensing has improved marginally.? Ventricular sensing has diminished.? Pacing and shock lead impedance is stable.? Atrial capture thresholds are slightly elevated and reprogrammed to enhance safety.? RV pacing thresholds are significantly elevated.? LV pacing thresholds adequate.? No arrhythmias detected.? Battery life is at 1.5 years [id number] Cardiac Device Check, multi lead implantable defibrillator Procedure code (CPT) selection complete EKG 04/2022 Details: EKG shows AV dual paced rhythm with LV pacing Assessment and Plan Assessment Anesthesia Assessment: Chart Reviewed Documented by User: Main Barnes MD 05/29/22 11:24 [facility] Past Medical History Medical History Anxiety Biventricular ICD (implantable cardioverter-defibrillator) in place CAD (coronary artery disease) Cardiomyopathy Failure of implantable cardioverter-defibrillator (ICD) lead Gout HFrEF (heart failure with reduced ejection fraction) Hypercholesterolemia Hypertension Obesity (BMI 30-39.9) JUDY (obstructive sleep apnea) PAF (paroxysmal atrial fibrillation) Port-A-Cath in place Septic arthritis of knee, left Ventricular fibrillation Vitamin D deficiency Family History Family History Father Hypertension CVD (cardiovascular disease) Mother No problems noted. Family history of problems with anesthesia: No Surgical History Surgical History History of arthroscopy of left knee History of cardiac defibrillator placement History of hip replacement History of tonsillectomy Hx of cardiac cath (~2013) History of Problems with Anesthesia: No Social History Social History Housing: House Alcohol intake: never Patient Tobacco Use Status: Never used Tobacco e-Cigarette/Vaping Use: Never Used Second Hand Smoke Exposure: No Use of substances other than those prescribed or required for medical reasons: No Are you DNR?: No Advance Directives: No Advance Directives Information Provided: Yes Recently lost weight without trying: No How much weight loss: 24-33 pounds Nutrition Risks: No Nutritional Risk service: No Current occupational status: employed Cognitive needs: No Hearing needs: No Vision needs: No Meds Allergies Allergy/AdvReac Type Severity Reaction Status Date / Time No Known Allergies Allergy Verified 05/08/22 15:11 [No Known Allergies*] Home Medications Medication Instructions Recorded Confirmed Last Taken Type allopurinol 300 mg tablet 100 mg PO DAILY 05/08/22 05/26/22 05/29/22 History amoxicillin 500 mg capsule 500 mg PO BID 05/08/22 05/29/22 05/29/22 History apixaban 5 mg tablet (Eliquis) 5 mg PO BID 05/13/22 05/26/22 05/29/22 History aspirin 81 mg tablet,delayed 81 mg PO DAILY 05/13/22 05/26/22 05/29/22 History release torsemide 20 mg tablet 20 mg PO DAILY 05/13/22 05/26/22 05/29/22 History Exam Airway Mallampati Class: III TM Dist: >3cm Neck ROM: Full Denture: Upper and Lower Loose/Missing/Broken Teeth: Yes Assessment and Plan Assessment Anesthesia Assessment: Anesthesia Plan Discussed Final Anesthetic Review Family History of Problems with Anesthesia: No History of Problems with Anesthesia: No NPO: Yes ASA Class: IV Final Preanesthetic Review: No Changes in Pt Med Stat, Meds/Allgs Chart Reviewed, Consent Obtained/Reviewed and Anes Risks/Benef Reviewed Patient Risk: High Procedure Risk: Low Anesthetic Plan Anesthetic Plan: MAC: Disposition: Standard PACU
[2022-05-29] VITALS (9 sets, daily range): BP systolic 84–106; BP diastolic 51–73; PULSE 60–62; RESP 16–19; TEMP 36.4–36.5; O2SAT 96–100; BMI 33.8
[2022-05-29] MEDS: 0.9 % Sodium Chloride 1,000 ML 50 ML IVCONT (08:31)
[2022-05-29 08:32] LABS: Anion Gap 18 (12-20); Carbon Dioxide 23 mmol/L (22-29); Chloride 100 mmol/L (96-108); Potassium 4.4 mmol/L (3.3-5.1); Sodium 137 mmol/L (135-145)
--- NOTE | 2022-05-29 09:05 | CA_ITS ---
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 1. No obvious masses or vegetations noted on the valvular structures as well as the visualized portion of the leads 2. Severely dilated left ventricle with severely reduced LV ejection fraction about 15-20% 3. Severe left atrial enlargement 4. At least moderate mitral regurgitation 5. Moderate to severe tricuspid regurgitation 6. No intracardiac shunting 7. [id number] atherosclerotic changes in the aorta Findings Procedure Information Consent was obtained prior to the procedure. Pre JAY oral cavity was checked and revealed mild overcrowding. The adult 3D probe was passed with no difficulty. Left Ventricle Severely increased left ventricular cavity size. The visually estimated ejection fraction is between 15-20%. There is evidence of regional wall motion abnormalities. no obvious thrombi or masses seen with the left ventricular cavity. Right Ventricle Normal right ventricular cavity size. There is normal right ventricular systolic function. Atria The left atrium is severely dilated. There is no evidence of interatrial shunt. There is no evidence of a patent foramen ovale. There is no evidence of an atrial septal defect. No masses or thrombi seen the left atrial appendage. The left upper and the right upper pulmonary drain normally into the left atrium. The right atrium is mildly dilated. There is no evidence of thrombus or mass in the right atrium. 3 leads were identified traversing from the superior vena cava into the right atrium. the right atrial lead was visualized right from the SVC into the right atrial free wall. There were no clear masses or vegetation touches right atrial leads. The RV lead was also visualized from the SVC into the right atrial cavity into the right ventricular cavity and this was free of significant masses or vegetation. The left atrial lead was also identified although could not be traced all the way into the coronary sinus. Aortic Valve There is mild calcification of the aortic valve. There is no aortic valve stenosis. There is no evidence of a mass on the aortic valve. There is no aortic valve regurgitation. Mitral Valve There is mild anterior and posterior mitral leaflet thickening. There is mild mitral annular calcification. There is moderate mitral valve regurgitation. There is no mitral valve stenosis. There is no mass noted on the mitral valve. Pulmonic Valve The pulmonic valve is likely normal. There is trace pulmonic valve regurgitation. Tricuspid Valve There is mild anterior and moderate posterior tricuspid leaflet thickening. There is moderate to severe tricuspid valve regurgitation. There is no evidence of a mass on the tricuspid valve. Great Vessels The pulmonary artery was not well visualized. [id number] atherosclerotic changes noted in the ascending as well as transverse and descending thoracic aorta. Venous The inferior vena cava is normal in size and collapses greater than 50% with inspiration. Pericardium/Pleural There is no evidence of pericardial effusion. Measurements Mitral Valve MR Vol - PW Dopp: 21.00 MR VTI: 1.40 MR ERO: 15.00 MR Alias Ramin: 0.39 MR RAD: 0.50 Tricuspid Valve TR Pk Ramin: 3.24 TR Pk Grad: 42.00 Updated by Jose Dumont on 02:13 PM with Status of Final Jose Dumont MD electronically signed on 05/31/2022 2:13:23 PM with status of Final
--- NOTE | 2022-05-29 09:05 | MHC.SHP ---
Pre-Procedural Eval Section A Date of Service: 05/29/22 The patient is an INPATIENT: No Changes since office visit: Yes Patient answered all questions; No Cold of Flu in the past 2 weeks, No New Medical Problems and No Changes in Medication The History & Physical has been completed within 30 days and I have reviewed it.: Yes Section B Chief Complaint: Bacteremia Allergies: Allergies Allergy/AdvReac Type Severity Reaction Status Date / Time No Known Allergies Allergy Verified 05/08/22 15:11 [No Known Allergies*] Plan I have reviewed the history and physical and performed a pertinent physical examination on my patient. No changes have occurred unless specified. Time Spent With Patient Time: Total time managing care of this patient today ____ minutes.
== END 2022-05-29 11:51 | disposition home or self-care (01) ==
PROVIDERS: Nurse Practitioner; PCP Internal Medicine; Visit Provider Internal Medicine Cardiovascular Disease
PROC: (CPT 93312; principal; 2022-05-29 09:40)
DX: R78.81 Bacteremia (principal); I42.9 Cardiomyopathy, unspecified; R53.81 Other malaise; I11.0 Hypertensive heart disease with heart failure; I50.20 Unspecified systolic (congestive) heart failure; I48.0 Paroxysmal atrial fibrillation; E78.00 Pure hypercholesterolemia, unspecified; I25.118 Atherosclerotic heart disease of native coronary artery with other forms of angina pectoris; Z95.810 Presence of automatic (implantable) cardiac defibrillator; G47.33 Obstructive sleep apnea (adult) (pediatric); F41.1 Generalized anxiety disorder; E55.9 Vitamin D deficiency, unspecified; Z79.01 Long term (current) use of anticoagulants; Z79.899 Other long term (current) drug therapy
CPT/HCPCS: 93312; 36415; 80051; J2370

== ENCOUNTER 2022-07-03 09:00 | Outpatient (RCR) | payer OTHER, SELFPAY ==
[2022-06-24 09:04] VITALS: BP 119/66; PULSE 64
--- NOTE | 2022-06-24 12:38 | MHC.PT.EP ---
[facility] [place] Office [place] Office [place] Office [address] Ashly Flowers [address] [phone] F: [phone] F: [phone] F: [phone] F: [phone] Physical Therapy Plan of Care Date of Evaluation: Date of Surgery: N/A Diagnosis: unsteadiness on feet (RC) Assessment: pt is a 66 y/o male presenting to physical therapy w/ referring diagnosis of unsteadiness on feet. Impairments include pain, decreased range of motion, decreased strength, impaired functional mobility, impaired postural awareness, and altered ambulation mechanics. pt is a good candidate for skilled PT due to age, potential remediation of impairments, typical disease/condition progression and prognosis, comorbidities, and motivation. pt would benefit from skilled PT intervention to provide a tailored strengthening and stretching exercise program, functional training, gait training, postural re-training, neuromuscular re-education, modalities as needed for pain, equipment safety demonstration. Frequency and Duration: The patient will be seen 2x/wk for 6 wks Short Term Goals: pt will be I w/ HEP to promote self-management of condition. pt will improve B hip flexion and knee extension to 4+/5 to promote ease in navigating stairs. pt will improve TUG by 3+ seconds to reduce fall risk w/ LRAD. 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 pt will improve 6MWT to at least 800' w/o rest break to promote ease in household ambulation. Treatment Plan: Modalities to reduce pain, spasms and effusion. Manual therapy to restore motion and function. Therapeutic exercise to improve strength and flexibility. Neuromuscular re-education for posture and balance. Therapeutic activities to return to functional activities of daily living. Electronically signed by: Britany Kim PT, DPT Please sign and return to therapist. Thank you for your referral.
--- NOTE | 2022-08-12 12:31 | MHC.PT.DC ---
[facility] [place] Office [place] Office [place] Office [address] Ashly Flowers [address] [phone] F: [phone] F: [phone] F: [phone] F: [phone] Physical Therapy Discharge Report Diagnosis: unsteadiness on feet (RC) Date of Surgery: N/A Date of Evaluation: 06/24/22 Date of Discharge: 08/12/22 Treatments to Date: 4 Cancellations to Date: 5 No Shows to Date: 5 Discharge Status: Visit Non-compliance Discharge Summary: The patient was showing improvement in his functional status; however, had an exacerbation of respiratory status which prompted many cancels and no shows. He no showed his last two scheduled appointments after calling him to confirm and he stated he would be present. Due to poor attendance he is being discharged from this physical therapy plan of care. Electronically signed by: Britany Kim PT, DPT Please sign and return to therapist. Thank you for your referral.
== END 2022-08-12 12:31 | disposition home or self-care (01) ==
LOC: HO.PT 09:00
PROVIDERS: PCP Internal Medicine; Visit Provider Internal Medicine
DX: R26.81 Unsteadiness on feet (principal); I42.9 Cardiomyopathy, unspecified
CPT/HCPCS: 97110; 97163; 97530

== ENCOUNTER 2022-07-08 08:33 | Outpatient (REF) | payer OTHER, SELFPAY ==
[2022-07-08 08:51] LABS: MANUAL DIFF FLAG NO
[2022-07-08 09:09] LABS: Basophils Percent Auto 0.4 % (0-2); Eosinophils Percent Auto 0.3 % (0-4); Hematocrit 35.9 % (42.0-52.0); Imm Gran Abs Auto 0.16 X10*3/uL (0.00-0.03); Imm Gran Pct Auto 1.5 % (0.0-0.4); Immature Retic Fraction 28.4 % (2.3-13.4); Lymphocytes Absolute Auto 1.9 X10*3/uL (1.2-4.9); Lymphocytes Percent Auto 17.5 % (20-40); Mean Corpuscular HGB Conc 30.6 g/dl (31.0-36.0); Mean Corpuscular Hemoglobin 25.2 pg (27.0-33.0); Mean Corpuscular Volume 82.3 fL (80.0-98.0); Mean Platelet Volume 9.6 fL (9.4-12.4); Monocytes Absolute Auto 0.7 X10*3/uL (0.1-1.2); Monocytes Percent Auto 6.4 % (2-11); Neutrophils Absolute Auto 8.1 x10*3/uL (2.0-8.3); Neutrophils Percent Auto 73.9 % (45-73); Platelet Count 249 X10*3/uL (160-400); Red Blood Count 4.36 X10*6/uL (4.60-5.80); Red Cell Distribution Width 18.8 % (11.0-16.0); Retic HGB Equivalent 30.9 pg (30.0-35.0); Reticulocyte Percent 1.3 % (0.5-1.8); Reticulocytes Absolute 0.055 X10*6/uL (0.026-0.095); White Blood Count 10.9 X10*3/uL (4.8-10.8)
[2022-07-08 09:51] LABS: B Type Natriuretic Peptide 1668 pg/mL (<100)
[2022-07-08 09:57] LABS: Alanine Aminotransferase 23 U/L (0-40); Albumin Level 3.7 g/dL (3.5-5.0); Alkaline Phosphatase 102 U/L (39-117); Anion Gap 18 (12-20); Aspartate Amino Transferase 24 U/L (5-37); Bilirubin Total 0.8 mg/dL (0.0-1.0); Blood Urea Nitrogen 49 mg/dL (9-16); Calcium 9.3 mg/dL (8.4-10.2); Carbon Dioxide 17 mmol/L (22-29); Chloride 112 mmol/L (96-108); Estimated Glomerular Filt Rate 20; Glucose Random 101 mg/dL (60-115); Iron 35 mcg/dL (45-160); Percent Iron Saturation 14 % (15-50); Potassium 5.6 mmol/L (3.3-5.1); Sodium 141 mmol/L (135-145); Total Iron Binding Capacity 250 mcg/dL (228-428); Total Protein 7.4 g/dL (6.5-8.0); Unsaturated Iron Binding 215 ug/dL
[2022-07-08 10:16] LABS: Ferritin 418 ng/mL (20-250); Folate 6.4 ng/mL (> or = 4.0); Free T4 (Free Thyroxine) 1.39 ng/dL (0.71-1.85); Prostate Specific Antigen Scr 1.26 ng/mL (<0.05-4.0); Vitamin B12 616 pg/mL (200-900)
== END 2022-07-08 08:34 | disposition home or self-care (01) ==
LOC: HO.LAB 08:33
PROVIDERS: PCP Internal Medicine; Visit Provider Internal Medicine
DX: Z12.5 Encounter for screening for malignant neoplasm of prostate (principal); I50.20 Unspecified systolic (congestive) heart failure; N18.6 End stage renal disease
CPT/HCPCS: 36415; 80053; 82607; 82728; 82746; 83540; 83880; 84153; 84439; 84443; 85025; 85045

== ENCOUNTER 2022-07-23 13:06 | Outpatient (REF) | payer OTHER, SELFPAY ==
--- NOTE | ~2022-07-23 | XR_ITS ---
EXAMINATION: XR CHEST CLINICAL INFORMATION: R05.9 - Cough, unspecified COMPARISON: Chest radiographs 05/10/2020, 09/07/2018 TECHNIQUE: 2 views of the chest were obtained. FINDINGS: The lungs are clear and there is no airspace consolidation, vascular, groundglass opacity or effusion. The costophrenic sulci are clear. Again, there is mild enlarged cardiopericardial silhouette. Vascularity is normal. There is a 3-lead AICD. The hilar and mediastinal contours and bony structures are unremarkable. XR/XR chest 2V IMPRESSION: No acute intrathoracic disease.
[2022-07-23 14:03] LABS: MANUAL DIFF FLAG NO
[2022-07-23 14:26] LABS: Basophils Percent Auto 0.2 % (0-2); Eosinophils Percent Auto 0.4 % (0-4); Hematocrit 36.5 % (42.0-52.0); Hemoglobin 11.3 g/dl (14.0-18.0); Imm Gran Abs Auto 0.05 X10*3/uL (0.00-0.03); Imm Gran Pct Auto 0.5 % (0.0-0.4); Lymphocytes Percent Auto 10.3 % (20-40); Mean Corpuscular Hemoglobin 25.5 pg (27.0-33.0); Mean Corpuscular Volume 82.2 fL (80.0-98.0); Mean Platelet Volume 9.9 fL (9.4-12.4); Monocytes Absolute Auto 0.7 X10*3/uL (0.1-1.2); Monocytes Percent Auto 7.3 % (2-11); NRBC Pct Auto 0.3 /100WBC (0.0-0.2); Neutrophils Absolute Auto 7.8 x10*3/uL (2.0-8.3); Neutrophils Percent Auto 81.3 % (45-73); Platelet Count 255 X10*3/uL (160-400); Red Blood Count 4.44 X10*6/uL (4.60-5.80); Red Cell Distribution Width 21.4 % (11.0-16.0); White Blood Count 9.6 X10*3/uL (4.8-10.8)
[2022-07-23 14:56] LABS: Alanine Aminotransferase 28 U/L (0-40); Albumin Level 3.5 g/dL (3.5-5.0); Alkaline Phosphatase 184 U/L (39-117); Anion Gap 17 (12-20); Aspartate Amino Transferase 44 U/L (5-37); Bilirubin Total 1.1 mg/dL (0.0-1.0); Blood Urea Nitrogen 52 mg/dL (9-16); Calcium 8.8 mg/dL (8.4-10.2); Carbon Dioxide 18 mmol/L (22-29); Chloride 105 mmol/L (96-108); Estimated Glomerular Filt Rate 19; Glucose Random 110 mg/dL (60-115); Iron 36 mcg/dL (45-160); Percent Iron Saturation 14 % (15-50); Potassium 5.3 mmol/L (3.3-5.1); Sodium 135 mmol/L (135-145); Total Iron Binding Capacity 251 mcg/dL (228-428); Total Protein 7.2 g/dL (6.5-8.0); Unsaturated Iron Binding 215 ug/dL
[2022-07-23 15:17] LABS: Ferritin 325 ng/mL (20-250)
[2022-07-25 12:03] LABS: NT-proBNP 17300 pg/mL
== END 2022-07-23 13:07 | disposition home or self-care (01) ==
LOC: HO.LAB 13:06
PROVIDERS: Absent Provider Internal Medicine; PCP Internal Medicine; Visit Provider Nurse Practitioner Adult Health
DX: R05.9 Cough, unspecified (principal); I50.9 Heart failure, unspecified
CPT/HCPCS: 36415; 71046; 80053; 82728; 83540; 83880; 85025